=== PATIENT | female | born 1965 | race African-American/Black ===

== ENCOUNTER 2021-02-18 19:53 | Inpatient (IN) | payer OTHER, SELFPAY ==
[2021-02-18] MEDS ORDERED: Diltiazem 125 MG/25 ML ONE (20:02)
[2021-02-18] MEDS ORDERED: Cefepime 2 GM VIAL ONE (20:24)
[2021-02-18 21:13] LABS: #Monocytes 0.4 10x3/uL (0.0-1.1); #Neutrophils 9.5 10x3/uL (1.5-8.4); %Basophils 0.3 % (0.0-2.0); %Eosinophils 0.2 % (0.0-6.0); %Lymphocytes 6.7 % (18.0-47.0); %Monocytes 3.6 % (0.0-10.0); %Neutrophils 88.7 % (40.0-75.0); Hemoglobin 10.3 g/dL (12.0-15.5); Mean Corpuscular HGB CONC 31.1 g/dL (32.0-36.0); Mean Corpuscular Hemoglobin 24.3 pg (27.0-33.0); Mean Corpuscular Volume 78.3 fl (81.6-98.3); Mean Platelet Volume 9.9 fl (7.4-10.4); Platelet Count 204 10x3/uL (150-450); RBC Distribution Width 17.7 % (11.5-14.5); Red Blood Cell (RBC) Count 4.23 10x6/uL (3.90-5.03); White Blood Cell (WBC) Count 10.7 10x3/uL (3.5-10.5)
[2021-02-18 21:29] LABS: ALT (SGPT) Less than 6 U/L (8-55); AST (SGOT) 12 U/L (5-34); Albumin 3.6 g/dL (3.5-5.0); Alkaline Phosphatase 116 U/L (40-110); Anion Gap 19 mmol/L (10-20); BUN (Urea Nitrogen) 12 mg/dL (9.8-20.1); Bilirubin, Total 3.3 mg/dL (0.2-1.2); CK (CPK) 44 U/L (29-168); Calc. Creatinine Clearance 0 mL/min (70-130); Calcium 8.6 mg/dL (7.8-10.44); Carbon Dioxide 18 mmol/L (22-29); Chloride 106 mmol/L (98-107); Globulin 4.9 g/dL (2.4-3.5); Glucose 77 mg/dL (70-105); Magnesium 1.8 mg/dL (1.6-2.6); Potassium 3.7 mmol/L (3.5-5.1); Protein, Total 8.5 g/dL (6.0-8.3); Sodium 139 mmol/L (136-145)
[2021-02-18 21:51] LABS: CKMB 1.1 ng/mL (0-6.6)
[2021-02-18 22:31] LABS: SARS-CoV-2 NAA Rapid Test Not Detected (NotDetected)
[2021-02-18 22:56] LABS: Bilirubin Neg (Negative); Blood, Urine 10 (Negative); Clarity Slightly Cloudy (Clear); Glucose, Urine (Dipstick) Normal (Negative); Ketone, Urine Negative (Negative); Leukocyte Negative (Negative); Nitrite Negative (Negative); Protein, Urine (Dipstick) 30 mg/dl (Neg-Trace); Urobilinogen Normal mg/dL (Less than 2)
[2021-02-18 23:05] LABS: Bacteria/HPF None Seen HPF (None Seen); RBC/HPF 0-3 HPF (0-3); Squamous Epithelial 0-3 HPF (0-3); WBC/HPF 0-3 HPF (0-3); White Blood Cell Cast 0-3 LPF (None Seen)
[2021-02-18] MEDS ORDERED: HYDROcodone/Acetaminophen 5/325 mg Tablet PO PRN (23:10)
[2021-02-18] MEDS ORDERED: Ondansetron PF 4 MG/2 ML Vial IVP PRN (23:10)
[2021-02-18] MEDS ORDERED: Ondansetron ODT 4 MG TAB PO PRN (23:10)
[2021-02-18] MEDS ORDERED: Enoxaparin Sodium 120 MG/0.8 ML SYRINGE SC SCH (23:23)
[2021-02-18] MEDS ORDERED: Metoprolol Tartrate 25 MG TAB PO SCH (23:25)
[2021-02-19] MEDS ORDERED: Furosemide 40 MG/4 ML VIAL ONE (00:12)
[2021-02-19] MEDS ORDERED: Furosemide 40 MG/4 ML VIAL SLOW IVP SCH (00:15)
[2021-02-19] MEDS ORDERED: guaiFENesin/Codeine 200 mg/20 mg 10 ml Cup PO PRN (00:20)
[2021-02-19] MEDS ORDERED: Digoxin 0.25 MG TAB PO SCH ×2 (00:30→09:00)
[2021-02-19 00:47] LABS: Digoxin 0.18 ng/mL (0.8-2.0)
[2021-02-19 00:50] LABS: Lactic Acid 5.6 mmol/L (0.5-2.2)
[2021-02-19] MEDS ORDERED: Melatonin 3 MG TAB PO SCH (03:00)
[2021-02-19] MEDS: Acetaminophen 325 MG TAB PO PRN (03:06)
[2021-02-19 03:39] LABS: #Monocytes 0.2 10x3/uL (0.0-1.1); #Neutrophils 7.2 10x3/uL (1.5-8.4); %Basophils 0.1 % (0.0-2.0); %Eosinophils 0.2 % (0.0-6.0); %Lymphocytes 8.1 % (18.0-47.0); %Monocytes 2.9 % (0.0-10.0); %Neutrophils 88.2 % (40.0-75.0); Mean Corpuscular HGB CONC 31.3 g/dL (32.0-36.0); Mean Corpuscular Hemoglobin 24.3 pg (27.0-33.0); Mean Corpuscular Volume 77.7 fl (81.6-98.3); Mean Platelet Volume 9.4 fl (7.4-10.4); Platelet Count 173 10x3/uL (150-450); RBC Distribution Width 17.3 % (11.5-14.5); Red Blood Cell (RBC) Count 4.12 10x6/uL (3.90-5.03); White Blood Cell (WBC) Count 8.2 10x3/uL (3.5-10.5)
[2021-02-19 03:46] LABS: Lactic Acid 3.9 mmol/L (0.5-2.2)
[2021-02-19 03:53] LABS: ALT (SGPT) Less than 6 U/L (8-55); AST (SGOT) 16 U/L (5-34); Albumin 3.4 g/dL (3.5-5.0); Alkaline Phosphatase 106 U/L (40-110); Anion Gap 18 mmol/L (10-20); BUN (Urea Nitrogen) 14 mg/dL (9.8-20.1); Bilirubin, Total 3.4 mg/dL (0.2-1.2); Calc. Creatinine Clearance 75 mL/min (70-130); Calcium 8.5 mg/dL (7.8-10.44); Carbon Dioxide 18 mmol/L (22-29); Chloride 108 mmol/L (98-107); Globulin 4.6 g/dL (2.4-3.5); Magnesium 1.7 mg/dL (1.6-2.6); Potassium 3.9 mmol/L (3.5-5.1); Sodium 140 mmol/L (136-145)
[2021-02-19 03:58] LABS: Glucose 44 mg/dL (70-105)
[2021-02-19] MEDS ORDERED: Dextrose 50% Abboject 50 ML SYRINGE ONE ×2 (04:25→16:08)
[2021-02-19] MEDS ORDERED: Dextrose 50% Abboject 50 ML SYRINGE SLOW IVP SCH ×2 (04:45→16:05)
[2021-02-19] MEDS: Piperacillin/Tazobactam 3.375 GM in Sodium Chloride 0.9% 100 ML IVPB SCH ×3 (05:55→15:41)
[2021-02-19] MEDS: Ferrous Sulfate 325 MG TAB PO SCH ×2 (07:59→17:14)
[2021-02-19] MEDS: Aspirin 81 mg Enteric Coated Tablet PO SCH (08:00)
[2021-02-19] MEDS: Apixaban 5 MG TAB PO SCH ×2 (08:00→21:19)
[2021-02-19] MEDS: Metoprolol Tartrate 25 MG TAB PO SCH ×2 (08:00→21:19)
[2021-02-19] MEDS ORDERED: VANCOMYCIN 1.25 GM/250 ML BAG IVPB SCH (09:00)
[2021-02-19] MEDS ORDERED: Losartan 25 MG TAB PO SCH (09:00)
[2021-02-19] MEDS ORDERED: Digoxin 0.125 MG TAB PO SCH (09:15)
[2021-02-19 11:19] LABS: Hemoglobin A1c 4.7 % (4.0-6.0)
[2021-02-19] MEDS ORDERED: Metoprolol Tartrate 5 MG/5 ML VIAL IVP PRN (17:37)
[2021-02-19 18:50] LABS: CKMB 1.2 ng/mL (0-6.6)
[2021-02-19] MEDS ORDERED: VANCOMYCIN 1.25 GM in Sodium Chloride 0.9% 250 ML 250 ML IVPB SCH (21:00)
[2021-02-19] MEDS: Atorvastatin Calcium 40 MG TAB PO SCH (21:18)
[2021-02-20] MEDS: Piperacillin/Tazobactam 3.375 GM in Sodium Chloride 0.9% 100 ML IVPB SCH ×3 (00:56→15:56)
[2021-02-20 04:05] LABS: #Eosinphils 0.4 10x3/uL (0.0-0.5); #Monocytes 0.5 10x3/uL (0.0-1.1); #Neutrophils 10.1 10x3/uL (1.5-8.4); %Basophils 0.1 % (0.0-2.0); %Eosinophils 3.3 % (0.0-6.0); %Lymphocytes 5.1 % (18.0-47.0); %Monocytes 4.1 % (0.0-10.0); %Neutrophils 86.6 % (40.0-75.0); Mean Corpuscular HGB CONC 31.5 g/dL (32.0-36.0); Mean Corpuscular Hemoglobin 24.8 pg (27.0-33.0); Mean Corpuscular Volume 78.8 fl (81.6-98.3); Mean Platelet Volume 9.9 fl (7.4-10.4); Platelet Count 169 10x3/uL (150-450); RBC Distribution Width 17.2 % (11.5-14.5); Red Blood Cell (RBC) Count 3.63 10x6/uL (3.90-5.03); White Blood Cell (WBC) Count 11.7 10x3/uL (3.5-10.5)
[2021-02-20 04:19] LABS: Phosphorus 2.6 mg/dL (2.3-4.7)
[2021-02-20 04:21] LABS: ALT (SGPT) Less than 6 U/L (8-55); AST (SGOT) 11 U/L (5-34); Albumin 2.8 g/dL (3.5-5.0); Alkaline Phosphatase 79 U/L (40-110); Anion Gap 15 mmol/L (10-20); BUN (Urea Nitrogen) 16 mg/dL (9.8-20.1); Bilirubin, Total 2.7 mg/dL (0.2-1.2); Calc. Creatinine Clearance 71 mL/min (70-130); Calcium 8.1 mg/dL (7.8-10.44); Carbon Dioxide 21 mmol/L (22-29); Chloride 107 mmol/L (98-107); Globulin 3.9 g/dL (2.4-3.5); Glucose 98 mg/dL (70-105); Magnesium 1.6 mg/dL (1.6-2.6); Potassium 3.6 mmol/L (3.5-5.1); Protein, Total 6.7 g/dL (6.0-8.3); Sodium 139 mmol/L (136-145)
[2021-02-20] MEDS: Furosemide 40 MG/4 ML VIAL SLOW IVP SCH ×2 (06:19→14:43)
[2021-02-20] MEDS: PATIENT'S HOME MEDICATION PO SCH (08:02)
[2021-02-20] MEDS: Digoxin 0.125 MG TAB PO SCH (08:03)
[2021-02-20] MEDS: Metoprolol Tartrate 25 MG TAB PO SCH ×2 (08:03→23:01)
[2021-02-20] MEDS: Aspirin 81 mg Enteric Coated Tablet PO SCH (08:03)
[2021-02-20] MEDS: Ferrous Sulfate 325 MG TAB PO SCH ×2 (08:04→15:55)
[2021-02-20] MEDS: Apixaban 5 MG TAB PO SCH ×2 (08:04→23:01)
[2021-02-20] MEDS ORDERED: Magnesium 2 GM/50 ML 2 GM in Premix Bag 1 BAG IVPB SCH (08:45)
[2021-02-20] MEDS: Acetaminophen 325 MG TAB PO PRN (09:05)
[2021-02-20 10:20] LABS: Bilirubin Neg (Negative); Blood, Urine 10 (Negative); Clarity Clear (Clear); Glucose, Urine (Dipstick) Normal (Negative); Ketone, Urine Negative (Negative); Leukocyte 100 (Negative); Nitrite Negative (Negative); Protein, Urine (Dipstick) Negative (Neg-Trace); Urobilinogen Normal mg/dL (Less than 2)
[2021-02-20 10:40] LABS: Bacteria/HPF Rare-Few HPF (None Seen); RBC/HPF 0-3 HPF (0-3); Squamous Epithelial 0-3 HPF (0-3); WBC/HPF 0-3 HPF (0-3)
[2021-02-20 11:29] LABS: Hemoglobin A1c 4.6 % (4.0-6.0)
[2021-02-20 18:17] LABS: #Eosinphils 0.5 10x3/uL (0.0-0.5); #Monocytes 0.4 10x3/uL (0.0-1.1); #Neutrophils 8.8 10x3/uL (1.5-8.4); %Basophils 0.1 % (0.0-2.0); %Eosinophils 4.5 % (0.0-6.0); %Lymphocytes 6.6 % (18.0-47.0); %Monocytes 3.7 % (0.0-10.0); %Neutrophils 84.2 % (40.0-75.0); Hemoglobin 8.8 g/dL (12.0-15.5); Mean Corpuscular HGB CONC 31.4 g/dL (32.0-36.0); Mean Corpuscular Hemoglobin 24.4 pg (27.0-33.0); Mean Corpuscular Volume 77.8 fl (81.6-98.3); Platelet Count 159 10x3/uL (150-450); RBC Distribution Width 17.2 % (11.5-14.5); White Blood Cell (WBC) Count 10.5 10x3/uL (3.5-10.5)
[2021-02-20 18:32] LABS: ALT (SGPT) Less than 6 U/L (8-55); AST (SGOT) 8 U/L (5-34); Alkaline Phosphatase 88 U/L (40-110); Anion Gap 14 mmol/L (10-20); BUN (Urea Nitrogen) 17 mg/dL (9.8-20.1); Bilirubin, Total 2.4 mg/dL (0.2-1.2); Calc. Creatinine Clearance 69 mL/min (70-130); Calcium 8.2 mg/dL (7.8-10.44); Carbon Dioxide 21 mmol/L (22-29); Chloride 105 mmol/L (98-107); Globulin 4.2 g/dL (2.4-3.5); Glucose 116 mg/dL (70-105); Potassium 3.2 mmol/L (3.5-5.1); Protein, Total 7.2 g/dL (6.0-8.3); Sodium 137 mmol/L (136-145)
[2021-02-20] MEDS: Atorvastatin Calcium 40 MG TAB PO SCH (23:01)
[2021-02-21] MEDS: Piperacillin/Tazobactam 3.375 GM in Sodium Chloride 0.9% 100 ML IVPB SCH ×3 (00:43→16:04)
[2021-02-21] MEDS: Acetaminophen 325 MG TAB PO PRN (04:32)
[2021-02-21] MEDS: Furosemide 40 MG/4 ML VIAL SLOW IVP SCH ×2 (06:43→13:53)
[2021-02-21 08:20] LABS: #Eosinphils 0.5 10x3/uL (0.0-0.5); #Monocytes 0.5 10x3/uL (0.0-1.1); #Neutrophils 7.2 10x3/uL (1.5-8.4); %Basophils 0.1 % (0.0-2.0); %Eosinophils 5.9 % (0.0-6.0); %Lymphocytes 7.5 % (18.0-47.0); %Monocytes 5.3 % (0.0-10.0); %Neutrophils 80.5 % (40.0-75.0); Hemoglobin 8.5 g/dL (12.0-15.5); Mean Corpuscular HGB CONC 31.4 g/dL (32.0-36.0); Mean Corpuscular Hemoglobin 24.6 pg (27.0-33.0); Mean Corpuscular Volume 78.3 fl (81.6-98.3); Mean Platelet Volume 10.8 fl (7.4-10.4); Platelet Count 172 10x3/uL (150-450); RBC Distribution Width 17.5 % (11.5-14.5); Red Blood Cell (RBC) Count 3.46 10x6/uL (3.90-5.03); White Blood Cell (WBC) Count 8.9 10x3/uL (3.5-10.5)
[2021-02-21 08:28] LABS: ALT (SGPT) Less than 6 U/L (8-55); AST (SGOT) 9 U/L (5-34); Albumin 2.9 g/dL (3.5-5.0); Alkaline Phosphatase 101 U/L (40-110); Anion Gap 14 mmol/L (10-20); BUN (Urea Nitrogen) 18 mg/dL (9.8-20.1); Bilirubin, Total 2.5 mg/dL (0.2-1.2); Calc. Creatinine Clearance 71 mL/min (70-130); Calcium 8.1 mg/dL (7.8-10.44); Carbon Dioxide 23 mmol/L (22-29); Chloride 104 mmol/L (98-107); Globulin 4.1 g/dL (2.4-3.5); Glucose 93 mg/dL (70-105); Potassium 3.2 mmol/L (3.5-5.1); Sodium 138 mmol/L (136-145)
[2021-02-21] MEDS: PATIENT'S HOME MEDICATION PO SCH (09:34)
[2021-02-21] MEDS: Apixaban 5 MG TAB PO SCH ×2 (09:35→21:37)
[2021-02-21] MEDS: Metoprolol Tartrate 25 MG TAB PO SCH ×2 (09:35→21:37)
[2021-02-21] MEDS: Ferrous Sulfate 325 MG TAB PO SCH ×2 (09:35→16:04)
[2021-02-21] MEDS: Aspirin 81 mg Enteric Coated Tablet PO SCH (09:36)
[2021-02-21] MEDS: Digoxin 0.125 MG TAB PO SCH (09:36)
[2021-02-21] MEDS ORDERED: Potassium Chloride 20 MEQ TAB PO SCH (11:00)
[2021-02-21] MEDS: Atorvastatin Calcium 40 MG TAB PO SCH (21:36)
[2021-02-22] MEDS: Piperacillin/Tazobactam 3.375 GM in Sodium Chloride 0.9% 100 ML IVPB SCH ×2 (00:13→08:21)
[2021-02-22 05:40] LABS: #Eosinphils 0.5 10x3/uL (0.0-0.5); #Monocytes 0.5 10x3/uL (0.0-1.1); #Neutrophils 4.6 10x3/uL (1.5-8.4); %Lymphocytes 15.8 % (18.0-47.0); %Monocytes 7.2 % (0.0-10.0); %Neutrophils 68.5 % (40.0-75.0); Hemoglobin 8.1 g/dL (12.0-15.5); Mean Corpuscular HGB CONC 32.3 g/dL (32.0-36.0); Mean Corpuscular Hemoglobin 24.6 pg (27.0-33.0); Mean Corpuscular Volume 76.3 fl (81.6-98.3); Mean Platelet Volume 10.6 fl (7.4-10.4); Platelet Count 165 10x3/uL (150-450); RBC Distribution Width 16.9 % (11.5-14.5); Red Blood Cell (RBC) Count 3.29 10x6/uL (3.90-5.03); White Blood Cell (WBC) Count 6.7 10x3/uL (3.5-10.5)
[2021-02-22 05:42] LABS: ALT (SGPT) Less than 6 U/L (8-55); AST (SGOT) 8 U/L (5-34); Albumin 2.9 g/dL (3.5-5.0); Alkaline Phosphatase 95 U/L (40-110); Anion Gap 16 mmol/L (10-20); BUN (Urea Nitrogen) 18 mg/dL (9.8-20.1); Bilirubin, Total 2.5 mg/dL (0.2-1.2); Calc. Creatinine Clearance 74 mL/min (70-130); Calcium 8.1 mg/dL (7.8-10.44); Carbon Dioxide 23 mmol/L (22-29); Chloride 102 mmol/L (98-107); Globulin 4.1 g/dL (2.4-3.5); Glucose 88 mg/dL (70-105); Potassium 3.1 mmol/L (3.5-5.1); Sodium 138 mmol/L (136-145)
[2021-02-22] MEDS: Furosemide 40 MG/4 ML VIAL SLOW IVP SCH (06:13)
[2021-02-22] MEDS ORDERED: Potassium Chloride 20 MEQ TAB PO SCH ×3 (07:30→23:00)
[2021-02-22] MEDS: Digoxin 0.125 MG TAB PO SCH (08:20)
[2021-02-22] MEDS: Aspirin 81 mg Enteric Coated Tablet PO SCH (08:20)
[2021-02-22] MEDS: Ferrous Sulfate 325 MG TAB PO SCH ×2 (08:20→17:27)
[2021-02-22] MEDS: Apixaban 5 MG TAB PO SCH ×2 (08:20→22:06)
[2021-02-22] MEDS: PATIENT'S HOME MEDICATION PO SCH (08:20)
[2021-02-22] MEDS: Metoprolol Tartrate 25 MG TAB PO SCH ×2 (08:28→22:07)
[2021-02-22 13:32] LABS: Anion Gap 15 mmol/L (10-20); BUN (Urea Nitrogen) 17 mg/dL (9.8-20.1); Calc. Creatinine Clearance 69 mL/min (70-130); Calcium 8.2 mg/dL (7.8-10.44); Carbon Dioxide 25 mmol/L (22-29); Chloride 100 mmol/L (98-107); Glucose 90 mg/dL (70-105); Magnesium 1.4 mg/dL (1.6-2.6); Potassium 3.2 mmol/L (3.5-5.1); Sodium 137 mmol/L (136-145)
[2021-02-22] MEDS: cefTRIAXone\\ROCEPHIN 2 GM in Sodium Chloride 0.9% 100 ML IVPB SCH (17:27)
[2021-02-22] MEDS ORDERED: Loperamide HCl 2 MG CAP PO PRN (18:26)
[2021-02-22] MEDS ORDERED: Magnesium Sulfate 3 GM in Sodium Chloride 0.9% 100 ML IVPB SCH (19:00)
[2021-02-22] MEDS ORDERED: Loperamide HCl 2 MG CAP PO SCH (20:00)
[2021-02-22] MEDS: Atorvastatin Calcium 40 MG TAB PO SCH (22:06)
[2021-02-22] MEDS: Furosemide 40 MG TAB PO SCH (22:06)
[2021-02-22] MEDS: Potassium Chloride 20 MEQ TAB PO SCH (22:08)
[2021-02-23 05:40] LABS: #Eosinphils 0.6 10x3/uL (0.0-0.5); #Monocytes 0.6 10x3/uL (0.0-1.1); %Basophils 0.2 % (0.0-2.0); %Lymphocytes 15.4 % (18.0-47.0); %Neutrophils 65.1 % (40.0-75.0); Hemoglobin 8.7 g/dL (12.0-15.5); Mean Corpuscular Hemoglobin 24.2 pg (27.0-33.0); Mean Corpuscular Volume 75.6 fl (81.6-98.3); Mean Platelet Volume 9.8 fl (7.4-10.4); Platelet Count 186 10x3/uL (150-450); RBC Distribution Width 16.8 % (11.5-14.5); White Blood Cell (WBC) Count 6.1 10x3/uL (3.5-10.5)
[2021-02-23 05:55] LABS: ALT (SGPT) Less than 6 U/L (8-55); AST (SGOT) 6 U/L (5-34); Alkaline Phosphatase 105 U/L (40-110); Anion Gap 15 mmol/L (10-20); BUN (Urea Nitrogen) 16 mg/dL (9.8-20.1); Bilirubin, Total 2.1 mg/dL (0.2-1.2); Calc. Creatinine Clearance 71 mL/min (70-130); Calcium 8.3 mg/dL (7.8-10.44); Carbon Dioxide 26 mmol/L (22-29); Chloride 99 mmol/L (98-107); Globulin 4.4 g/dL (2.4-3.5); Glucose 85 mg/dL (70-105); Magnesium 1.6 mg/dL (1.6-2.6); Potassium 3.4 mmol/L (3.5-5.1); Protein, Total 7.4 g/dL (6.0-8.3); Sodium 137 mmol/L (136-145)
[2021-02-23] MEDS: Apixaban 5 MG TAB PO SCH ×2 (08:04→20:51)
[2021-02-23] MEDS: Digoxin 0.125 MG TAB PO SCH (08:04)
[2021-02-23] MEDS: Ferrous Sulfate 325 MG TAB PO SCH ×2 (08:04→17:46)
[2021-02-23] MEDS: Furosemide 40 MG TAB PO SCH ×2 (08:04→20:51)
[2021-02-23] MEDS: PATIENT'S HOME MEDICATION PO SCH (08:04)
[2021-02-23] MEDS: Aspirin 81 mg Enteric Coated Tablet PO SCH (08:04)
[2021-02-23] MEDS: Potassium Chloride 20 MEQ TAB PO SCH ×2 (08:04→20:50)
[2021-02-23] MEDS ORDERED: Potassium Chloride 20 MEQ TAB PO SCH ×2 (08:45→21:00)
[2021-02-23] MEDS: Spironolactone 25 MG TAB PO SCH (08:52)
[2021-02-23 09:34] VITALS: BMI 46.8
[2021-02-23] MEDS: Metoprolol Tartrate 50 MG TAB PO SCH ×2 (09:55→20:51)
[2021-02-23] MEDS ORDERED: Magnesium 2 GM/50 ML 2 GM in Premix Bag 1 BAG IVPB SCH (15:00)
[2021-02-23] MEDS: cefTRIAXone\\ROCEPHIN 2 GM in Sodium Chloride 0.9% 100 ML IVPB SCH (17:46)
[2021-02-23] MEDS ORDERED: Magnesium Sulfate/D5W 1 GM/100 ML BAG IVPB SCH (18:30)
[2021-02-23] MEDS: Atorvastatin Calcium 40 MG TAB PO SCH (20:51)
[2021-02-23] MEDS ORDERED: Magnesium Oxide 400 MG TAB PO SCH (21:00)
[2021-02-23] MEDS: Acetaminophen 325 MG TAB PO PRN (21:25)
[2021-02-24 05:21] LABS: #Eosinphils 0.7 10x3/uL (0.0-0.5); #Monocytes 0.6 10x3/uL (0.0-1.1); #Neutrophils 3.1 10x3/uL (1.5-8.4); %Basophils 0.4 % (0.0-2.0); %Eosinophils 13.2 % (0.0-6.0); %Lymphocytes 19.5 % (18.0-47.0); %Monocytes 10.1 % (0.0-10.0); %Neutrophils 56.3 % (40.0-75.0); Hemoglobin 8.7 g/dL (12.0-15.5); Mean Corpuscular HGB CONC 31.3 g/dL (32.0-36.0); Mean Corpuscular Hemoglobin 23.8 pg (27.0-33.0); Mean Corpuscular Volume 76.2 fl (81.6-98.3); Mean Platelet Volume 10.5 fl (7.4-10.4); Platelet Count 208 10x3/uL (150-450); Red Blood Cell (RBC) Count 3.65 10x6/uL (3.90-5.03); White Blood Cell (WBC) Count 5.5 10x3/uL (3.5-10.5)
[2021-02-24 05:55] LABS: ALT (SGPT) Less than 6 U/L (8-55); AST (SGOT) 9 U/L (5-34); Alkaline Phosphatase 115 U/L (40-110); Anion Gap 15 mmol/L (10-20); BUN (Urea Nitrogen) 16 mg/dL (9.8-20.1); Bilirubin, Total 1.3 mg/dL (0.2-1.2); Calc. Creatinine Clearance 75 mL/min (70-130); Calcium 8.3 mg/dL (7.8-10.44); Carbon Dioxide 27 mmol/L (22-29); Chloride 98 mmol/L (98-107); Globulin 4.4 g/dL (2.4-3.5); Glucose 103 mg/dL (70-105); Magnesium 1.9 mg/dL (1.6-2.6); Potassium 3.2 mmol/L (3.5-5.1); Protein, Total 7.4 g/dL (6.0-8.3); Sodium 137 mmol/L (136-145)
[2021-02-24] MEDS ORDERED: Potassium Chloride 20 MEQ TAB PO SCH ×2 (08:00→10:00)
[2021-02-24] MEDS ORDERED: Magnesium 2 GM/50 ML 2 GM in Premix Bag 1 BAG IVPB SCH (08:00)
[2021-02-24 08:16] VITALS: TEMP 98.2
[2021-02-24] MEDS: Metoprolol Tartrate 50 MG TAB PO SCH (08:53)
[2021-02-24] MEDS: Aspirin 81 mg Enteric Coated Tablet PO SCH (08:53)
[2021-02-24] MEDS: Potassium Chloride 20 MEQ TAB PO SCH (08:56)
[2021-02-24] MEDS: Furosemide 40 MG TAB PO SCH (08:56)
[2021-02-24] MEDS: Digoxin 0.125 MG TAB PO SCH (08:57)
[2021-02-24] MEDS: PATIENT'S HOME MEDICATION PO SCH (09:00)
[2021-02-24] MEDS: Apixaban 5 MG TAB PO SCH (09:00)
[2021-02-24] MEDS ORDERED: Magnesium Oxide 400 MG TAB PO SCH (09:00)
[2021-02-24] MEDS: Ferrous Sulfate 325 MG TAB PO SCH (09:00)
[2021-02-24] MEDS: Spironolactone 25 MG TAB PO SCH (09:24)
[2021-02-24 11:54] VITALS: BP 149/81
[2021-02-24] MEDS ORDERED: cefTRIAXone\\ROCEPHIN 2 GM in Sodium Chloride 0.9% 100 ML IVPB SCH (13:30)
[2021-02-24 15:51] LABS: Anion Gap 16 mmol/L (10-20); BUN (Urea Nitrogen) 15 mg/dL (9.8-20.1); Calc. Creatinine Clearance 80 mL/min (70-130); Calcium 8.3 mg/dL (7.8-10.44); Carbon Dioxide 27 mmol/L (22-29); Chloride 97 mmol/L (98-107); Glucose 102 mg/dL (70-105); Potassium 4.3 mmol/L (3.5-5.1); Sodium 136 mmol/L (136-145)
[2021-02-25] MEDS ORDERED: Potassium Chloride 20 MEQ TAB PO SCH (08:00)
== END 2021-02-24 15:00 | disposition left against medical advice (07) | DRG 974 ==
LOC: CSHERS 19:53 → CSHIMCU 02-19 00:07 → CSHTELE 02-20 11:02
PROVIDERS: ADMIT Internal Medicine; ATTEND Internal Medicine
DX: A41.51 Sepsis due to Escherichia coli [E. coli] (principal); J96.01 Acute respiratory failure with hypoxia; B20 Human immunodeficiency virus [HIV] disease; I50.43 Acute on chronic combined systolic (congestive) and diastolic (congestive) heart failure; R65.21 Severe sepsis with septic shock; N17.9 Acute kidney failure, unspecified; I48.92 Unspecified atrial flutter; I47.1 Supraventricular tachycardia; I13.0 Hypertensive heart and chronic kidney disease with heart failure and stage 1 through stage 4 chronic kidney disease, or unspecified chronic kidney disease; I24.8 Other forms of acute ischemic heart disease; Z20.822 Contact with and (suspected) exposure to COVID-19; I48.91 Unspecified atrial fibrillation; R19.7 Diarrhea, unspecified; N18.30 Chronic kidney disease, stage 3 unspecified; R77.8 Other specified abnormalities of plasma proteins; E16.2 Hypoglycemia, unspecified; Z79.01 Long term (current) use of anticoagulants; Z79.899 Other long term (current) drug therapy
CPT/HCPCS: 36415; 36416; 51701; 71045; 76705; 80053; 80162; 81003; 81015; 82550; 82553; 83036; 83605; 83735; 83880; 84100; 84145; 84443; 84484; 85025; 86140; 87040; 87077; 87086; 87149; 87186; 87324; 87449; 93005; 93306; 94640; 94760; 96365; 96366; 96367; J0692; J0696; J1940; J2543; J3370; J3475; J3490; J7050; J7620; U0002